=== PATIENT | female | born 1985 | race Two or more races ===

== ENCOUNTER → 2017-04-07 | Outpatient (CLI) | payer BC ==
--- NOTE | ~2017-04-07 | US128 ---
[id number] [facility] [address] [place], [place] [address] [id number] O MR#: [id number] Acc #: [id number] NAME: GINA GARCIA : 1985 SEX: F STUDY DATE/TIME: 04/07/2017 13:29 UNIT: [facility] ROOM: STUDY DESCRIPTION: US Thyroid Attending Physician: Marcela Beauchamp Referring Physician: Marcela Beauchamp Ordering Physician: Naman Stoll Primary Care Physician: [facility] MEDICAL IMAGING REPORT This report is preliminary unless electronic signature is present EXAM Thyroid ultrasound 04/07/2017 INDICATIONS 32-year-old female with thyromegaly. Symptoms 2 weeks. TECHNIQUE Sonographic imaging of the thyroid gland was performed bilaterally. COMPARISON No comparisons FINDINGS The right thyroid lobe measures 4.0 x 1.3 x 1.5 cm and the left measures 3.9 x 1.2 x 1.6 cm. Thyroid isthmus measures 4-5 mm. No distinct cystic or solid nodule on either side. There is mildly heterogeneous echotexture of the thyroid gland bilaterally. Vascularity within normal limits. IMPRESSION Bilateral thyromegaly but no cystic or solid nodule identified. Dictated by... Brody Dunn M.D. THIS IS AN ELECTRONICALLY VERIFIED REPORT Brody Dunn M.D. at 04/11/2017 7:10 AM YANDY/caitlin TD: 04/10/2017 22:29 JOB #: [id number] MEDICAL IMAGING REPORT Page 1 of 1 COPY
== END | disposition home or self-care (01) ==
LOC: CGUS 12:51
DX: E01.0 Iodine-deficiency related diffuse (endemic) goiter (principal)
CPT/HCPCS: 76536